=== PATIENT | female | born 1965 | race Caucasian/White ===

== ENCOUNTER 2017-04-21 08:41 | Day surgery (SDC) | payer MEDICAID, OTHER ==
[~2017-04-21] VITALS: Ht 157.5 cm; Wt 71.5 kg
[2017-04-21 09:58] VITALS: Ht 157.5 cm; Wt 71.5 kg
[2017-04-21] MEDS ORDERED: NO MEDS (10:00)
[2017-04-21 10:15] VITALS: BP 165/79; PULSE 73; RESP 16
[2017-04-21] MEDS ORDERED: LIDOCAINE 4% SOLUTION 50 ML BTL ONE (10:24)
--- NOTE | 2017-04-21 10:58 | OPPN ---
Date/Time of Note Date/Time of Note DATE: 04/21/17 TIME: 10:56 Proc Note GI Procedure Date 04/21/17 Indication: screening/surveillance, diagnostic Pre-procedure Diagnosis gerd screening colonoscopy Post-procedure Diagnosis gerd gastritis normal colon Procedure Performed: Endoscopy, Colonoscopy Surgeon see signature line Computer Aided Design Technician none Anesthesia Type: moderate sedation Tourniquet Time none EBL none Transfusion required none Biopsy 1: gastric bx esophageal Grafts/Implants none Tubes/Drains none Complication(s) none Disposition: other Procedure Description egd /colonoscopy performed with mod sed gastritis and gerd seen colon normal IGOR ZURITA MD Apr 21, 2017 10:58
[2017-04-21] MEDS ORDERED: FENTAnyl 50 MCG/ML VIAL ONE (11:01)
[2017-04-21] MEDS ORDERED: MIDAZOLAM 1 MG/ML 2 ML INJ ONE ×2 (11:01)
[2017-04-21 11:23] VITALS: BP 131/68; PULSE 65; RESP 18
--- NOTE | 2017-04-21 22:46 | GILP ---
DATE OF PROCEDURE: PROCEDURE: Esophagogastroduodenoscopy. PREOPERATIVE DIAGNOSIS: The patient presenting with history of chronic heartburn unresponsive to ro utine therapy, rule out gastroesophageal reflux disease, Weinberg's esophagus. POSTOPERATIVE DIAGNOSES: 1. Mild reflux esophagitis. Biopsies were done. 2. Diffuse moderate degree of gastritis. Biopsies were done to rule out Helicobacter pylori infect ion. DESCRIPTION OF PROCEDURE: After informed written consent was obtained, the patient was asked to lie on the left lateral side. The patient was given 3 mg of Versed and 50 mcg of fentanyl as intraveno us anesthesia. When the patient became somnolent, the Olympus video upper endoscope was introduced into the orophar ynx, then into the esophagus. Esophagus appeared to show evidence of erythema about the GE junction indicating mild reflux esophagitis. Scope at this time was advanced into the stomach. Entire stom ach showed evidence of erythema of moderate degree, indicating moderate degree of gastritis. Scope at this time was advanced into the duodenum. Entire duodenum up to the end of the third portion wendy eared normal. Endoscope at this time was withdrawn. No additional abnormalities detected, and the procedure was terminated. PLAN: Recommend omeprazole 40 mg a day before breakfast for 2 months. Dictated By: IGOR SOLORIO/CHEKO Conf#: [id number] DID#: [id number]
--- NOTE | 2017-04-21 22:49 | GILP ---
DATE OF PROCEDURE: NAME OF PROCEDURE: Colonoscopy up to cecum. PREOPERATIVE DIAGNOSIS: Screening colonoscopy to rule out colon polyps. POSTOPERATIVE DIAGNOSIS: Normal examination. DESCRIPTION OF PROCEDURE: After the informed written consent was obtained, the patient was asked to lie on the left lateral side. Intravenous anesthesia was given which included 4 mg Versed and 50 m cg of fentanyl. When the patient became somnolent, Olympus video colonoscope was introduced into th e rectum and scope was advanced all the way to the cecum. Entire colon appeared perfectly normal. No polyps, no diverticulosis, no neoplasm noted. Endoscope at this time was withdrawn, no additiona l abnormalities detected, no hemorrhoids noted and the procedure was terminated. PLAN: Recommend a high fiber diet, and recommend colonoscopy in 10 years. Dictated By: IGOR SOLORIO/CHEKO Conf#: [id number] DID#: [id number]
== END 2017-04-21 11:58 | disposition home or self-care (01) ==
LOC: GIL 08:41
PROVIDERS: ATTEND Internal Medicine Gastroenterology
DX: Z12.11 Encounter for screening for malignant neoplasm of colon (principal); K29.30 Chronic superficial gastritis without bleeding; K21.0 Gastro-esophageal reflux disease with esophagitis
CPT/HCPCS: 43239; 45378; J2250; J3010; Z7610; 88305; 88312; 88313